=== PATIENT | male | born 1975 | race Caucasian/White ===

== ENCOUNTER 2020-08-04 05:50 | Outpatient (CLI) | payer BC ==
[~2020-08-04] VITALS: Ht 167 cm; Wt 77.2 kg
[2020-08-21] MEDS ORDERED: TRAM50TA3 PO (10:52)
[2020-08-21] MEDS ORDERED: GEMF600T8 PO (10:52)
[2020-08-21] MEDS ORDERED: PANT40TA52 PO (10:52)
== END 2020-08-21 10:57 | disposition home or self-care (01) ==
LOC: PREOP 05:50
PROVIDERS: ATTEND Surgery
DX: Z01.818 Encounter for other preprocedural examination (principal)

== ENCOUNTER 2020-08-21 05:40 | Outpatient (RCR) | payer BC ==
[~2020-08-21] VITALS: Ht 167 cm; Wt 77.2 kg
[2020-08-21] MEDS ORDERED: GEMF600T8 PO (10:52)
[2020-08-21] MEDS ORDERED: TRAM50TA3 PO (10:52)
[2020-08-21] MEDS ORDERED: PANT40TA52 PO (10:52)
== END 2020-08-21 10:57 | disposition home or self-care (01) ==
LOC: PREOP 05:40
PROVIDERS: ATTEND Surgery
DX: Z01.818 Encounter for other preprocedural examination (principal)

== ENCOUNTER 2020-09-12 08:23 | Day surgery (SDC) | payer BC ==
[~2020-09-12] VITALS: Ht 167 cm; Wt 77.0 kg
[~2020-09-12 08:23] MED LIST: GEMF600T8 PO; PANT40TA52 PO; TRAM50TA3 PO
[2020-09-12] MEDS ORDERED: LACTATED RINGERS 1,000 ML IV ONE (08:48)
[2020-09-12 09:03] VITALS: BP 133/89
[2020-09-12] MEDS ORDERED: LACTATED RINGERS 1,000 ML IV STA (09:05)
[2020-09-12] MEDS ORDERED: HURRICAINE EXT TUBE (BENZOCAINE) XX PRN (09:15)
[2020-09-12] MEDS ORDERED: HURRICAINE EXT TUBE (BENZOCAINE) ONE (09:49)
[2020-09-12] MEDS ORDERED: MIDAZOLAM 2 MG/2 ML (VERSED) VIAL ONE (09:51)
[2020-09-12] MEDS ORDERED: proPOfol 200 MG/20 ML (DIPRIVAN) VIAL IV ONE (09:51)
[2020-09-12 10:20] VITALS: BP 130/77
[2020-09-12 10:25] VITALS: BP 116/68
--- NOTE | 2020-09-12 10:25 | Progress Note-Post Operative ---
Post-Operative Progess Note Surgeon (s)/Ton Container Shipper (s) Surgeon RISHI MOHR DO Ton Container Shipper: none Pre-Operative Diagnosis Dysphagia Post-Operative Diagnosis Gastritis Gastric polyp esophagitis Procedure & Operative Findings Date of Procedure 09/12/20 Procedure Performed/Findings EGD with bx Anesthesia Type IV sedation by PAD ASSEMBLER Estimated Blood Loss Estimated blood loss (mL): scant Specimens/Packing Specimens Removed antral bx polyp body of stomach bx GE jxn bx RISHI MOHR DO Sep 12, 2020 10:25
--- NOTE | 2020-09-12 10:26 | Endoscopy Discharge Instruct ---
Endo Procedure/Findings Findings 1.: Gastritis 2.: Polyp 3.: Other Findings (esophagitis) Discharge Instructions - Activity: You might feel a little sleepy until tomorrow. This is due to the medicine you received to relax you. Until tomorrow, you should: NOT drive a car, operate machinery or power tools. NOT drink any alcoholic beverages. NOT make any important decisions or sign importortant papers. Do not return to work until tomorrow, unless otherwise instructed. Resume previous activities tomorrow. Diet: Start by taking liquids. If you tolerate liquids, advance to solid food. 1.: EGD in 3 years Notify Physician - If you experience excessive bleeding, unusual abdominal pain, fever, or chest pain, contact your doctor immediately. RISHI MOHR DO Sep 12, 2020 10:26
[2020-09-12 10:30] VITALS: BP 129/77
[2020-09-12 10:50] VITALS: BP 134/83
[2020-09-12 11:00] VITALS: BP 134/83
--- NOTE | 2020-09-12 14:32 | Anesthesia-General Post-Op ---
MAC Patient Condition Mental Status/LOC: Same as Preop Cardiovascular: Satisfactory Nausea/Vomiting: Absent Respiratory: Satisfactory Pain: Controlled Complications: Absent Post Op Complications Complications None Follow Up Care/Instructions Patient Instructions None needed. Anesthesiology Discharge Order Discharge Order Patient is doing well, no complaints, stable vital signs, no apparent adverse anesthesia problems. No complications reported per nursing. ASHVIN GONGORA CRNA Sep 12, 2020 14:32
--- NOTE | 2020-09-12 18:32 | OPERATIVE REPORT ---
DATE OF SERVICE: PREOPERATIVE DIAGNOSIS: Dysphagia. POSTOPERATIVE DIAGNOSES: Gastritis, gastric polyps and esophagitis. PROCEDURE: EGD with biopsy. SURGEON: Richie Parrish DO CHIEF GUARD: None. ANESTHESIA: IV sedation by the FABRICATION MIG WELDER. SPECIMEN: Biopsy from the antrum, biopsy of a gastric polyp, biopsy of body of stomach and biopsy of the GE junction. BLOOD LOSS: Scant. FLUIDS: Per anesthesia. POSTOPERATIVE CONDITION: Stable. INDICATION FOR PROCEDURE: The patient is a 45-year-old male with a long history of chewing tobacco. Also history of food bolus and had an EGD about 9 or 10 years ago. He is starting to have more dysphagia. FINDINGS: The patient had some gastritis, couple of small gastric polyps and he had some esophagitis. Biopsies performed. PROCEDURE NOTE: After informed consent was obtained, the patient was brought to the endoscopy suite, placed in bed in left lateral decubitus position. He was administered IV sedation by the FABRICATION MIG WELDER who then monitored his vitals the entire time, heart rate, blood pressure and pulse ox and the scope was inserted down the mouth through the esophagus into the stomach. Upon entering the stomach, noted some inflammation of the antrum, took a picture, pushed into the duodenum. Duodenum looked fine. Pulled back, did a biopsy of the antrum and then pulled back a little bit more and saw a polyp, able to do a biopsy to completely remove this polyp. Retroflexed the scope, did not see a hiatal hernia, did a biopsy of body of stomach and then pulled the scope into the GE junction, did a biopsy and then pushed the scope into the stomach and suctioned all the air out, pulled the scope up the esophagus. On the way out I took it slowly to make sure there were no masses or strictures. I did not see anything in the esophagus and then pulled the scope out of the esophagus and out the mouth. The patient tolerated the procedure, recovered in endoscopy suite. Job ID: [id number] DocumentID: [id number] Dictated Date: 09/12/2020 10:59:15 Avionics Manager Date: 09/12/2020 18:31:19 Dictated By: RICHIE PARRISH DO [facility]
== END 2020-09-12 11:00 | disposition home or self-care (01) ==
LOC: ENDO 08:23
PROVIDERS: ATTEND Surgery
DX: K29.50 Unspecified chronic gastritis without bleeding (principal); K21.00 Gastro-esophageal reflux disease with esophagitis, without bleeding; K31.7 Polyp of stomach and duodenum; E78.1 Pure hyperglyceridemia

== ENCOUNTER → 2020-12-11 | Outpatient (CLI) | payer BC ==
[~2020-12-11] MED LIST changes: -GEMF600T8 PO; +GEMF600T88 PO
--- NOTE | 2020-12-11 16:02 | Diagnostic Imaging Report ---
INDICATION: LUMBAR PAIN; SACRAL PAIN X3 MONTHS TECHNIQUE: AP, Lateral and Spot imaging of the lumbar spine CORRELATION STUDY: None FINDINGS: The lumbar spinal curvature and alignment are within normal limits. Vertebral body heights and disc spaces are maintained. Minimal scattered areas of endplate lipping particularly at L4 and L5. No fracture or malalignment. IMPRESSION: No radiographic evidence for acute bony abnormality of the lumbar spine. Dictated by: Dictated on workstation # [id number]
--- NOTE | 2020-12-11 16:02 | Diagnostic Imaging Report ---
INDICATION: Sacral pain AP and lateral views of the sacrum are obtained. Sacroiliac joints are unremarkable. There is no evidence of sacral fracture. No malalignment is detected. Subchondral cyst is seen in the lateral left acetabulum. IMPRESSION: No acute abnormality is detected. Dictated by: Dictated on workstation # [id number]
== END ==
LOC: RAD FS 15:36
PROVIDERS: ATTEND Nurse Practitioner Family
DX: M54.5 Low back pain (principal); M53.3 Sacrococcygeal disorders, not elsewhere classified
CPT/HCPCS: 72100; 72220

== ENCOUNTER → 2022-01-18 | Outpatient (CLI) | payer BC ==
[2022-01-18 10:45] VITALS: BP 146/91
--- NOTE | 2022-01-18 11:20 | Cardiology Stress Test Report ---
Stress Test Report Date of Procedure/Referring: Date of Procedure: Jan 18, 2022 PCP Jackeline Dixon MD Admitting Physician Kody Davey MD Indications: CP Baseline Heart Rate: 73 Baseline Blood Pressure: Blood Pressure Systolic: 146 Blood Pressure Diastolic: 91 Baseline EKG: Baseline EKG: NSR Summary/Conclusion: Summary: In summary, the patient started exercising with a baseline heart rate, blood pressure and EKG mentioned above Patient was able to exercise for a total of 10 minutes on Nathaniel protocol, METs 11.7 Maximum heart rate 154 Maximum blood pressure 198/93 Stress EKG, Minimal nondiagnostic changes Recovery EKG , Return to baseline Conclusion: 1. Good exercise tolerance for a total of 10 minutes on Nathaniel protocol, 11.7 ME Ts, achieving 89 percent of maximum expected heart rate 2. Minimal nondiagnostic EKG changes with exercise returned to baseline during recovery 3. No arrhythmia was noted JACKELINE DIXON MD Jan 18, 2022 11:20
== END ==
LOC: CARD 09:30
PROVIDERS: ATTEND Internal Medicine Cardiovascular Disease
DX: I25.10 Atherosclerotic heart disease of native coronary artery without angina pectoris (principal); I10 Essential (primary) hypertension
CPT/HCPCS: 93017; 93306